=== PATIENT | male | born 1955 | race Caucasian/White ===

== ENCOUNTER 2020-05-09 07:32 | Inpatient (IN) ==
[2020-05-09 08:06] LABS: Basophils # 0.2 K/mcL (0.0-0.2); Basophils % 1.3 %; Eosinophils % 11.7 %; Hemoglobin 14.1 g/dL (12.9-16.9); Immature Granulocytes % 1.3 % (0-4); Lymphocytes # 5.4 K/mcL (0.6-4.6); Lymphocytes % 31.4 %; Mean Corpuscular HGB Conc 31.3 g/dL (31.6-35.5); Mean Corpuscular Hemoglobin 30.9 pg (28.0-33.3); Mean Corpuscular Volume 98.7 fL (83.0-100.0); Mean Platelet Volume 10.3 fL (9.4-12.4); Monocytes # 1.5 K/mcL (0.0-1.3); Monocytes % 8.8 %; Neutrophils # 7.9 K/mcL (1.6-8.9); Platelet Count 321 K/mcL (140-400); Red Blood Count 4.56 M/mcL (4.19-5.50); Red Cell Distribution Width 13.6 % (11.5-14.5); Segmented Neutrophils % 45.5 %; White Blood Count 17.3 K/mcL (4.3-11.1)
[2020-05-09 08:14] LABS: Alanine Aminotransferase 27 Units/L (7-52); Albumin 4.7 g/dL (3.5-5.7); Albumin/Globulin Ratio 1.7 (1.1-2.2); Alkaline Phosphatase 52 Units/L (34-104); Aspartate Amino Transferase 25 Units/L (13-39); BUN/Creatinine Ratio 9 (6-26); Blood Urea Nitrogen 10 mg/dL (8-23); Calcium 9.4 mg/dL (8.6-10.3); Carbon Dioxide 35 mEq/L (23-29); Chloride 94 mEq/L (98-107); Globulin 2.8 g/dL (2.4-3.5); Glucose 254 mg/dL (70-105); Magnesium 2.3 mg/dL (1.6-2.6); Osmolality,Calculated 280 (280-300); Potassium 4.9 mEq/L (3.5-5.1); Sodium 131 mEq/L (136-145); Total Protein 7.5 g/dL (6.4-8.9); eGFR For African Americans > 60 (> 60); eGFR For Non-African Americans > 60 (> 60)
[2020-05-09 08:15] LABS: Prothrombin Time 13.4 Seconds (9.4-12.1)
[2020-05-09 08:17] LABS: Troponin I < 0.03 ng/mL (< 0.04)
[2020-05-09 08:21] LABS: ABG Base Excess -1 mEq/L (-2 to 3); ABG HCO3 32 mEq/L (21-27); ABG Oxygen Saturation 98 % (95-98); ABG PCO2 90 mmHg (35-45); ABG PH 7.15 pH Units (7.32-7.45); ABG PO2 135 mmHg (85-104); ABG TCO2 34 mEq/L (20-26)
[2020-05-09] MEDS ORDERED: Nitroglycerin 1 INCH/GM PACKET TP ONE (08:21)
[2020-05-09] MEDS ORDERED: Albuterol 2.5 MG/3 ML NEBULIZER ONE ×2 (08:25→12:07)
[2020-05-09 08:29] LABS: INR 1.2
[2020-05-09] MEDS ORDERED: methylPREDNISolone 125 MG/2 ML VIAL IVP ONE (08:30)
[2020-05-09 08:31] LABS: Thyroid Stimulating Hormone 1.152 mcIU/mL (0.340-5.600)
[2020-05-09 10:39] LABS: ABG Base Excess -4 mEq/L (-2 to 3); ABG HCO3 26 mEq/L (21-27); ABG Oxygen Saturation 96 % (95-98); ABG PCO2 68 mmHg (35-45); ABG PH 7.19 pH Units (7.32-7.45); ABG PO2 107 mmHg (85-104); ABG TCO2 28 mEq/L (20-26)
[2020-05-09 10:54] LABS: ABG Base Excess 0 mEq/L (-2 to 3); ABG HCO3 30 mEq/L (21-27); ABG Oxygen Saturation 96 % (95-98); ABG PCO2 70 mmHg (35-45); ABG PH 7.24 pH Units (7.32-7.45); ABG PO2 99 mmHg (85-104); ABG TCO2 32 mEq/L (20-26)
[2020-05-09] MEDS ORDERED: Albuterol Neb 7.5 MG, Sodium Chloride for inhalation 12 ML IH ONE (12:20)
[2020-05-09] MEDS ORDERED: Naloxone 0.4 MG/ML INJ IVP PRN (13:06)
[2020-05-09] MEDS ORDERED: Ondansetron ODT 4 MG TAB.RAPDIS SL PRN (13:06)
[2020-05-09] MEDS ORDERED: Acetaminophen 325 MG TABLET PO PRN (13:06)
[2020-05-09] MEDS ORDERED: MOM Conc 10 ML UD.LIQ PO PRN (13:06)
[2020-05-09] MEDS ORDERED: Ondansetron 4 MG/2 ML VIAL IVP PRN (13:06)
[2020-05-09] MEDS ORDERED: Mag Hydrox/Al Hydrox/Simeth 30 ML UDC PO PRN (13:06)
[2020-05-09] MEDS: MethylPREDNISolone 40 MG/ML VIAL IVP SCH ×2 (14:12→18:39)
[2020-05-09] MEDS: cefTRIAXone 1,000 MG in Water for inj. (sterile) 10 ML IVP SCH (14:14)
[2020-05-09] MEDS: 0.9 % Sodium Chloride 1,000 ML IVC SCH (14:15)
[2020-05-09] MEDS: Azithromycin 500 MG in 0.9 % Sodium Chloride 250 ML IVPB SCH (14:16)
[2020-05-09] MEDS: Benzonatate 100 MG CAPSULE PO PRN (15:09)
[2020-05-09] MEDS ORDERED: *HR* LORazepam 1 MG TABLET PO PRN (15:11)
[2020-05-09] MEDS: Ipratropium/Albuterol Neb 3 ML IH SCH ×2 (16:45→20:19)
[2020-05-09 17:07] LABS: Bilirubin,Urine Negative (Negative); Blood,Urine Negative (Negative); Clarity,Urine Clear (Clear); Color,Urine Yellow (Yellow); Glucose,Urine (UA) Normal (Normal); Ketones,Urine Negative (Negative); Leukocyte Esterase,Urine Negative (Negative); Nitrite,Urine Negative (Negative); PH,Urine 5.5 pH Units (5.0-8.0); Protein,Urine 100 mg/dL (Neg-Trace); Specific Gravity,Urine >= 1.030 (1.010-1.025); Urobilinogen,Urine Normal (Normal)
[2020-05-09 18:06] LABS: Amorphous Sediment,Urine Few per hpf (None-Few); RBC,Urine 0-3 per hpf (0-3); Squamous Epithelial Cell,Urine Few per hpf (None-Few)
[2020-05-09 18:48] LABS: Adenovirus Not Detected (Not Detect)
[2020-05-09 18:49] LABS: Bordetella Pertussis Not Detected (Not Detect); Chlamydophila pneumoniae Not Detected (Not Detect); Coronavirus 229E Not Detected (Not Detect); Coronavirus HKU1 Not Detected (Not Detect); Coronavirus NL63 Not Detected (Not Detect); Coronavirus OC43 Not Detected (Not Detect); Human Metapneumovirus Not Detected (Not Detect); Human Rhinovirus/Enterovirus Not Detected (Not Detect); Influenza A Subtype 2009 H1 Not Detected (Not Detect); Influenza B Not Detected (Not Detect); Mycoplasma pneumoniae Not Detected (Not Detect); Parainfluenza Virus 1 Not Detected (Not Detect); Parainfluenza Virus 2 Not Detected (Not Detect); Parainfluenza Virus 3 Not Detected (Not Detect); Parainfluenza Virus 4 Not Detected (Not Detect); Respiratory Syncytial Virus Not Detected (Not Detect); SARS-CoV-2 Not Detected (Not Detect)
[2020-05-10] MEDS: Ipratropium/Albuterol Neb 3 ML IH SCH ×7 (00:06→23:48)
[2020-05-10] MEDS: MethylPREDNISolone 40 MG/ML VIAL IVP SCH ×5 (00:18→23:31)
[2020-05-10] MEDS: 0.9 % Sodium Chloride 1,000 ML IVC SCH ×2 (04:24→18:15)
[2020-05-10] MEDS: *HR* Enoxaparin 40 MG/0.4 ML SYRINGE SQ SCH (05:18)
[2020-05-10 05:29] LABS: ABG Base Excess 0 mEq/L (-2 to 3); ABG HCO3 26 mEq/L (21-27); ABG Oxygen Saturation 92 % (95-98); ABG PCO2 45 mmHg (35-45); ABG PH 7.37 pH Units (7.32-7.45); ABG PO2 65 mmHg (85-104); ABG TCO2 27 mEq/L (20-26)
[2020-05-10 05:55] LABS: Basophils % 0.1 %; Eosinophils % 0.1 %; Hematocrit 37.2 % (37.5-50.1); Immature Granulocytes % 0.7 % (0-4); Lymphocytes # 0.9 K/mcL (0.6-4.6); Mean Corpuscular HGB Conc 32.3 g/dL (31.6-35.5); Mean Corpuscular Volume 96.1 fL (83.0-100.0); Mean Platelet Volume 10.1 fL (9.4-12.4); Monocytes # 0.3 K/mcL (0.0-1.3); Monocytes % 2.3 %; Platelet Count 204 K/mcL (140-400); Red Blood Count 3.87 M/mcL (4.19-5.50); Red Cell Distribution Width 13.8 % (11.5-14.5); Segmented Neutrophils % 90.8 %; White Blood Count 14.5 K/mcL (4.3-11.1)
[2020-05-10 06:04] LABS: Neutrophils # 13.2 K/mcL (1.6-8.9)
[2020-05-10 06:16] LABS: Alanine Aminotransferase 22 Units/L (7-52); Albumin 3.9 g/dL (3.5-5.7); Albumin/Globulin Ratio 1.6 (1.1-2.2); Alkaline Phosphatase 36 Units/L (34-104); Aspartate Amino Transferase 19 Units/L (13-39); BUN/Creatinine Ratio 20 (6-26); Bilirubin,Total 0.9 mg/dL (0.3-1.0); Blood Urea Nitrogen 20 mg/dL (8-23); Calcium 8.9 mg/dL (8.6-10.3); Carbon Dioxide 26 mEq/L (23-29); Chloride 100 mEq/L (98-107); Globulin 2.4 g/dL (2.4-3.5); Glucose 141 mg/dL (70-105); Magnesium 2.1 mg/dL (1.6-2.6); Osmolality,Calculated 281 (280-300); Phosphorous 3.1 mg/dL (2.7-4.5); Potassium 4.6 mEq/L (3.5-5.1); Sodium 133 mEq/L (136-145); Total Protein 6.3 g/dL (6.4-8.9); eGFR For African Americans > 60 (> 60); eGFR For Non-African Americans > 60 (> 60)
[2020-05-10] MEDS: lisinopriL 20 MG TABLET PO SCH (08:47)
[2020-05-10] MEDS: cefTRIAXone 1,000 MG in Water for inj. (sterile) 10 ML IVP SCH (08:47)
[2020-05-10] MEDS: Azithromycin 500 MG in 0.9 % Sodium Chloride 250 ML IVPB SCH (18:16)
[2020-05-11] MEDS: Benzonatate 100 MG CAPSULE PO PRN (01:46)
[2020-05-11] MEDS: Ipratropium/Albuterol Neb 3 ML IH SCH ×5 (04:00→20:04)
[2020-05-11 05:24] LABS: Hematocrit 34.4 % (37.5-50.1); Mean Corpuscular Hemoglobin 30.9 pg (28.0-33.3); Mean Corpuscular Volume 96.6 fL (83.0-100.0); Mean Platelet Volume 10.3 fL (9.4-12.4); Platelet Count 209 K/mcL (140-400); Red Blood Count 3.56 M/mcL (4.19-5.50); Red Cell Distribution Width 13.4 % (11.5-14.5); White Blood Count 15.9 K/mcL (4.3-11.1)
[2020-05-11] MEDS: *HR* Enoxaparin 40 MG/0.4 ML SYRINGE SQ SCH (05:29)
[2020-05-11] MEDS: MethylPREDNISolone 40 MG/ML VIAL IVP SCH ×3 (05:30→17:18)
[2020-05-11 05:38] LABS: BUN/Creatinine Ratio 19 (6-26); Blood Urea Nitrogen 17 mg/dL (8-23); Calcium 8.8 mg/dL (8.6-10.3); Carbon Dioxide 28 mEq/L (23-29); Chloride 106 mEq/L (98-107); Glucose 142 mg/dL (70-105); Osmolality,Calculated 290 (280-300); Potassium 4.3 mEq/L (3.5-5.1); Sodium 138 mEq/L (136-145); eGFR For African Americans > 60 (> 60); eGFR For Non-African Americans > 60 (> 60)
[2020-05-11 09:03] LABS: ABG Base Excess 2 mEq/L (-2 to 3); ABG HCO3 26 mEq/L (21-27); ABG Oxygen Saturation 91 % (95-98); ABG PCO2 40 mmHg (35-45); ABG PH 7.43 pH Units (7.32-7.45); ABG PO2 60 mmHg (85-104); ABG TCO2 27 mEq/L (20-26)
[2020-05-11] MEDS: lisinopriL 20 MG TABLET PO SCH (09:52)
[2020-05-11] MEDS: cefTRIAXone 1,000 MG in Water for inj. (sterile) 10 ML IVP SCH (09:52)
[2020-05-11] MEDS ORDERED: Isovue-370 500 ML BOTTLE IVP ONE (10:35)
[2020-05-11] MEDS: Azithromycin 500 MG in 0.9 % Sodium Chloride 250 ML IVPB SCH (14:39)
[2020-05-12] MEDS: Ipratropium/Albuterol Neb 3 ML IH SCH ×5 (00:01→15:49)
[2020-05-12] MEDS: MethylPREDNISolone 40 MG/ML VIAL IVP SCH ×4 (00:50→17:46)
[2020-05-12 06:39] LABS: Hemoglobin 11.2 g/dL (12.9-16.9); Mean Corpuscular Hemoglobin 30.6 pg (28.0-33.3); Mean Corpuscular Volume 95.6 fL (83.0-100.0); Mean Platelet Volume 10.5 fL (9.4-12.4); Platelet Count 208 K/mcL (140-400); Red Blood Count 3.66 M/mcL (4.19-5.50); Red Cell Distribution Width 13.4 % (11.5-14.5); White Blood Count 14.6 K/mcL (4.3-11.1)
[2020-05-12] MEDS: *HR* Enoxaparin 40 MG/0.4 ML SYRINGE SQ SCH (06:48)
[2020-05-12 06:54] LABS: Alanine Aminotransferase 23 Units/L (7-52); Albumin 3.5 g/dL (3.5-5.7); Albumin/Globulin Ratio 1.5 (1.1-2.2); Alkaline Phosphatase 31 Units/L (34-104); Aspartate Amino Transferase 16 Units/L (13-39); BUN/Creatinine Ratio 22 (6-26); Bilirubin,Total 0.5 mg/dL (0.3-1.0); Blood Urea Nitrogen 19 mg/dL (8-23); Calcium 8.7 mg/dL (8.6-10.3); Carbon Dioxide 24 mEq/L (23-29); Chloride 105 mEq/L (98-107); Globulin 2.3 g/dL (2.4-3.5); Glucose 136 mg/dL (70-105); Magnesium 2.2 mg/dL (1.6-2.6); Osmolality,Calculated 286 (280-300); Sodium 136 mEq/L (136-145); Total Protein 5.8 g/dL (6.4-8.9); eGFR For African Americans > 60 (> 60); eGFR For Non-African Americans > 60 (> 60)
[2020-05-12 07:16] LABS: ABG Base Excess 1 mEq/L (-2 to 3); ABG HCO3 26 mEq/L (21-27); ABG Oxygen Saturation 95 % (95-98); ABG PCO2 41 mmHg (35-45); ABG PH 7.41 pH Units (7.32-7.45); ABG PO2 74 mmHg (85-104); ABG TCO2 27 mEq/L (20-26)
[2020-05-12] MEDS: lisinopriL 20 MG TABLET PO SCH (09:31)
[2020-05-12] MEDS: cefTRIAXone 1,000 MG in Water for inj. (sterile) 10 ML IVP SCH (09:31)
[2020-05-12 16:45] VITALS: BP 154/75
[2020-05-12] MEDS: Azithromycin 500 MG in 0.9 % Sodium Chloride 250 ML IVPB SCH (17:46)
== END 2020-05-12 17:15 | disposition short-term general hospital (02) | DRG 190 ==
LOC: EMEROOGRE 07:32 → INPGRE 11:27
PROVIDERS: ADMIT Family Medicine; ATTEND Family Medicine

== ENCOUNTER 2020-12-10 20:52 | Inpatient (IN) ==
[2020-12-10] MEDS ORDERED: Ipratropium/Albuterol Neb 3 ML IH ONE ×2 (21:11→21:29)
[2020-12-10 22:08] LABS: Basophils # 0.2 K/mcL (0.0-0.2); Basophils % 1.6 %; Eosinophils # 1.5 K/mcL (0.0-0.6); Eosinophils % 15.4 %; Hematocrit 41.5 % (37.5-50.1); Hemoglobin 13.3 g/dL (12.9-16.9); Immature Granulocytes % 0.8 % (0-4); Lymphocytes % 20.4 %; Mean Corpuscular Hemoglobin 29.8 pg (28.0-33.3); Mean Platelet Volume 10.2 fL (9.4-12.4); Monocytes # 0.8 K/mcL (0.0-1.3); Monocytes % 8.6 %; Neutrophils # 5.2 K/mcL (1.6-8.9); Platelet Count 244 K/mcL (140-400); Red Blood Count 4.46 M/mcL (4.19-5.50); Red Cell Distribution Width 13.4 % (11.5-14.5); Segmented Neutrophils % 53.2 %; White Blood Count 9.8 K/mcL (4.3-11.1)
[2020-12-10 22:12] LABS: INR 1.1; Prothrombin Time 12.4 Seconds (9.4-12.1)
[2020-12-10 22:20] LABS: Activated Partial Thrombo Time 31.9 Seconds (26.0-36.0)
[2020-12-10 22:23] LABS: Troponin I < 0.03 ng/mL (< 0.04)
[2020-12-10 22:24] LABS: Alanine Aminotransferase 32 Units/L (7-52); Albumin 4.3 g/dL (3.5-5.7); Albumin/Globulin Ratio 1.5 (1.1-2.2); Alkaline Phosphatase 61 Units/L (34-104); Aspartate Amino Transferase 25 Units/L (13-39); BUN/Creatinine Ratio 7 (6-26); Bilirubin,Total 0.6 mg/dL (0.3-1.0); Blood Urea Nitrogen 7 mg/dL (8-23); Calcium 9.6 mg/dL (8.6-10.3); Carbon Dioxide 30 mEq/L (23-29); Chloride 98 mEq/L (98-107); Globulin 2.8 g/dL (2.4-3.5); Glucose 116 mg/dL (70-105); Osmolality,Calculated 279 (280-300); Phosphorous 3.6 mg/dL (2.7-4.5); Potassium 4.1 mEq/L (3.5-5.1); Sodium 135 mEq/L (136-145); Total Protein 7.1 g/dL (6.4-8.9); eGFR For African Americans > 60 (> 60); eGFR For Non-African Americans > 60 (> 60)
[2020-12-10] MEDS ORDERED: Isovue-370 500 ML BOTTLE IVP ONE (22:59)
[2020-12-10] MEDS ORDERED: Famotidine 20 MG/2 ML VIAL IVP ONE (23:03)
[2020-12-10] MEDS ORDERED: cefTRIAXone 1,000 MG in 0.9 % Sodium Chloride Mini Bag 100 ML IVPB ONE (23:59)
[2020-12-11] MEDS ORDERED: Ipratropium/Albuterol Neb 3 ML IH ONE (00:32)
[2020-12-11] MEDS ORDERED: *HR* LORazepam 2 MG/ML VIAL IVP ONE ×2 (00:42→22:14)
[2020-12-11] MEDS ORDERED: Azithromycin 500 MG in 0.9 % Sodium Chloride 250 ML IVPB ONE ×2 (01:00→01:35)
[2020-12-11] MEDS ORDERED: Naloxone 0.4 MG/ML INJ IVP PRN (01:35)
[2020-12-11] MEDS: Ipratropium/Albuterol Neb 3 ML IH SCH ×7 (04:31→23:55)
[2020-12-11 07:43] LABS: Basophils # 0.1 K/mcL (0.0-0.2); Basophils % 0.9 %; Eosinophils # 0.1 K/mcL (0.0-0.6); Eosinophils % 1.2 %; Hematocrit 43.5 % (37.5-50.1); Hemoglobin 13.6 g/dL (12.9-16.9); Immature Granulocytes % 1.2 % (0-4); Lymphocytes # 0.6 K/mcL (0.6-4.6); Lymphocytes % 9.5 %; Mean Corpuscular HGB Conc 31.3 g/dL (31.6-35.5); Mean Corpuscular Hemoglobin 29.6 pg (28.0-33.3); Mean Corpuscular Volume 94.8 fL (83.0-100.0); Mean Platelet Volume 9.9 fL (9.4-12.4); Monocytes # 0.1 K/mcL (0.0-1.3); Monocytes % 1.1 %; Neutrophils # 5.6 K/mcL (1.6-8.9); Platelet Count 261 K/mcL (140-400); Red Blood Count 4.59 M/mcL (4.19-5.50); Red Cell Distribution Width 13.3 % (11.5-14.5); Segmented Neutrophils % 86.1 %; White Blood Count 6.5 K/mcL (4.3-11.1)
[2020-12-11] MEDS: Tiotropium 10 INH DOSE IH SCH (07:53)
[2020-12-11] MEDS: Budesonide/Formoterol 160/4.5 1 PUFF INH IH SCH ×2 (07:53→21:02)
[2020-12-11 08:02] LABS: Alanine Aminotransferase 34 Units/L (7-52); Albumin 4.4 g/dL (3.5-5.7); Albumin/Globulin Ratio 1.5 (1.1-2.2); Alkaline Phosphatase 60 Units/L (34-104); Aspartate Amino Transferase 27 Units/L (13-39); BUN/Creatinine Ratio 7 (6-26); Bilirubin,Total 0.5 mg/dL (0.3-1.0); Blood Urea Nitrogen 6 mg/dL (8-23); Calcium 9.5 mg/dL (8.6-10.3); Carbon Dioxide 27 mEq/L (23-29); Chloride 101 mEq/L (98-107); Globulin 2.9 g/dL (2.4-3.5); Glucose 163 mg/dL (70-105); Osmolality,Calculated 283 (280-300); Potassium 4.7 mEq/L (3.5-5.1); Sodium 136 mEq/L (136-145); Total Protein 7.3 g/dL (6.4-8.9); eGFR For African Americans > 60 (> 60); eGFR For Non-African Americans > 60 (> 60)
[2020-12-11] MEDS ORDERED: predniSONE 20 MG TABLET PO SCH (09:00)
[2020-12-11] MEDS: Aspirin Enteric Coated 81 MG Tablet PO SCH (09:05)
[2020-12-11] MEDS: lisinopriL 20 MG TABLET PO SCH (09:05)
[2020-12-11] MEDS: methylPREDNISolone 125 MG/2 ML VIAL IVP SCH ×3 (12:11→23:35)
[2020-12-11] MEDS: 0.9 % Sodium Chloride 1,000 ML IVC SCH ×2 (12:11→22:37)
[2020-12-11 12:29] LABS: ABG Base Excess 1 mEq/L (-2 to 3); ABG HCO3 28 mEq/L (21-27); ABG Oxygen Saturation 87 % (95-98); ABG PCO2 50 mmHg (35-45); ABG PH 7.35 pH Units (7.32-7.45); ABG PO2 56 mmHg (85-104); ABG TCO2 29 mEq/L (20-26)
[2020-12-12] MEDS: Ipratropium/Albuterol Neb 3 ML IH SCH ×6 (04:05→21:48)
[2020-12-12 06:15] LABS: Hematocrit 37.5 % (37.5-50.1); Hemoglobin 11.7 g/dL (12.9-16.9); Mean Corpuscular HGB Conc 31.2 g/dL (31.6-35.5); Mean Corpuscular Hemoglobin 29.7 pg (28.0-33.3); Mean Corpuscular Volume 95.2 fL (83.0-100.0); Mean Platelet Volume 10.3 fL (9.4-12.4); Platelet Count 235 K/mcL (140-400); Red Blood Count 3.94 M/mcL (4.19-5.50); White Blood Count 14.2 K/mcL (4.3-11.1)
[2020-12-12] MEDS: methylPREDNISolone 125 MG/2 ML VIAL IVP SCH ×4 (06:23→23:16)
[2020-12-12] MEDS: *HR* Enoxaparin 40 MG/0.4 ML SYRINGE SQ SCH (06:23)
[2020-12-12 06:34] LABS: Alanine Aminotransferase 25 Units/L (7-52); Albumin 3.7 g/dL (3.5-5.7); Albumin/Globulin Ratio 1.6 (1.1-2.2); Alkaline Phosphatase 47 Units/L (34-104); Aspartate Amino Transferase 17 Units/L (13-39); BUN/Creatinine Ratio 14 (6-26); Bilirubin,Total 0.3 mg/dL (0.3-1.0); Blood Urea Nitrogen 11 mg/dL (8-23); Carbon Dioxide 27 mEq/L (23-29); Chloride 104 mEq/L (98-107); Globulin 2.3 g/dL (2.4-3.5); Glucose 152 mg/dL (70-105); Osmolality,Calculated 282 (280-300); Potassium 4.1 mEq/L (3.5-5.1); Sodium 135 mEq/L (136-145); eGFR For African Americans > 60 (> 60); eGFR For Non-African Americans > 60 (> 60)
[2020-12-12] MEDS: Aspirin Enteric Coated 81 MG Tablet PO SCH (08:20)
[2020-12-12] MEDS: lisinopriL 20 MG TABLET PO SCH (08:20)
[2020-12-12] MEDS: cefTRIAXone 1,000 MG in Water for inj. (sterile) 10 ML IVP SCH (08:20)
[2020-12-12] MEDS: Azithromycin 250 MG TABLET PO SCH (08:20)
[2020-12-12] MEDS: Tiotropium 10 INH DOSE IH SCH (08:47)
[2020-12-12] MEDS: Budesonide/Formoterol 160/4.5 1 PUFF INH IH SCH ×2 (08:48→21:48)
[2020-12-12] MEDS: 0.9 % Sodium Chloride 1,000 ML IVC SCH ×2 (10:10→19:55)
[2020-12-12] MEDS ORDERED: Mag Hydrox/Al Hydrox/Simeth 30 ML UDC PO PRN (11:03)
[2020-12-12] MEDS ORDERED: Levalbuterol Neb 1.25 MG/3 ML ONE (14:13)
[2020-12-12] MEDS: Levalbuterol Neb 1.25 MG/3 ML IH PRN (19:59)
[2020-12-13] MEDS: Levalbuterol Neb 1.25 MG/3 ML IH PRN ×3 (01:33→14:17)
[2020-12-13] MEDS ORDERED: Ibuprofen 600 MG TABLET PO PRN (04:23)
[2020-12-13] MEDS: Ipratropium/Albuterol Neb 3 ML IH SCH ×4 (04:24→20:21)
[2020-12-13] MEDS: methylPREDNISolone 125 MG/2 ML VIAL IVP SCH ×3 (04:36→19:29)
[2020-12-13] MEDS: *HR* Enoxaparin 40 MG/0.4 ML SYRINGE SQ SCH (04:38)
[2020-12-13] MEDS: cefTRIAXone 1,000 MG in Water for inj. (sterile) 10 ML IVP SCH (07:40)
[2020-12-13] MEDS: lisinopriL 20 MG TABLET PO SCH (07:40)
[2020-12-13] MEDS: Aspirin Enteric Coated 81 MG Tablet PO SCH (07:40)
[2020-12-13] MEDS: Azithromycin 250 MG TABLET PO SCH (07:40)
[2020-12-13] MEDS: 0.9 % Sodium Chloride 1,000 ML IVC SCH ×2 (07:41→17:10)
[2020-12-13] MEDS: Tiotropium 10 INH DOSE IH SCH (07:57)
[2020-12-13] MEDS: Budesonide/Formoterol 160/4.5 1 PUFF INH IH SCH ×2 (07:58→20:21)
[2020-12-14] MEDS: methylPREDNISolone 125 MG/2 ML VIAL IVP SCH ×3 (00:44→16:55)
[2020-12-14] MEDS: Ipratropium/Albuterol Neb 3 ML IH SCH ×4 (03:29→19:37)
[2020-12-14] MEDS: 0.9 % Sodium Chloride 1,000 ML IVC SCH ×2 (03:40→14:49)
[2020-12-14] MEDS: *HR* Enoxaparin 40 MG/0.4 ML SYRINGE SQ SCH (05:57)
[2020-12-14] MEDS: Budesonide/Formoterol 160/4.5 1 PUFF INH IH SCH ×2 (07:17→19:37)
[2020-12-14] MEDS: Levalbuterol Neb 1.25 MG/3 ML IH PRN (07:17)
[2020-12-14] MEDS: Tiotropium 10 INH DOSE IH SCH (07:18)
[2020-12-14] MEDS: cefTRIAXone 1,000 MG in Water for inj. (sterile) 10 ML IVP SCH (08:57)
[2020-12-14] MEDS: lisinopriL 20 MG TABLET PO SCH (08:57)
[2020-12-14] MEDS: Azithromycin 250 MG TABLET PO SCH (08:57)
[2020-12-14] MEDS: Aspirin Enteric Coated 81 MG Tablet PO SCH (08:57)
[2020-12-14 09:49] LABS: Hematocrit 37.2 % (37.5-50.1); Hemoglobin 11.8 g/dL (12.9-16.9); Mean Corpuscular HGB Conc 31.7 g/dL (31.6-35.5); Mean Corpuscular Hemoglobin 29.9 pg (28.0-33.3); Mean Corpuscular Volume 94.4 fL (83.0-100.0); Mean Platelet Volume 10.2 fL (9.4-12.4); Platelet Count 224 K/mcL (140-400); Red Blood Count 3.94 M/mcL (4.19-5.50); Red Cell Distribution Width 12.7 % (11.5-14.5); White Blood Count 12.1 K/mcL (4.3-11.1)
[2020-12-14] MEDS ORDERED: Saline Nasal Spray 44 ML BOTTLE NS PRN (20:30)
[2020-12-15] MEDS: 0.9 % Sodium Chloride 1,000 ML IVC SCH ×3 (00:52→17:50)
[2020-12-15] MEDS: Ipratropium/Albuterol Neb 3 ML IH SCH ×4 (04:08→21:28)
[2020-12-15] MEDS: *HR* Enoxaparin 40 MG/0.4 ML SYRINGE SQ SCH (04:30)
[2020-12-15] MEDS: methylPREDNISolone 125 MG/2 ML VIAL IVP SCH ×2 (04:30→17:43)
[2020-12-15 05:26] LABS: BUN/Creatinine Ratio 20 (6-26); Blood Urea Nitrogen 17 mg/dL (8-23); Calcium 8.5 mg/dL (8.6-10.3); Carbon Dioxide 28 mEq/L (23-29); Chloride 104 mEq/L (98-107); Glucose 109 mg/dL (70-105); Osmolality,Calculated 288 (280-300); Potassium 3.6 mEq/L (3.5-5.1); Sodium 138 mEq/L (136-145); eGFR For African Americans > 60 (> 60); eGFR For Non-African Americans > 60 (> 60)
[2020-12-15] MEDS: lisinopriL 20 MG TABLET PO SCH (08:26)
[2020-12-15] MEDS: Azithromycin 250 MG TABLET PO SCH (08:26)
[2020-12-15] MEDS: Aspirin Enteric Coated 81 MG Tablet PO SCH (08:26)
[2020-12-15] MEDS: cefTRIAXone 1,000 MG in Water for inj. (sterile) 10 ML IVP SCH (08:27)
[2020-12-15] MEDS: Budesonide/Formoterol 160/4.5 1 PUFF INH IH SCH ×2 (08:58→21:29)
[2020-12-15] MEDS: Tiotropium 10 INH DOSE IH SCH (08:58)
[2020-12-16] MEDS: Ipratropium/Albuterol Neb 3 ML IH SCH ×2 (03:16→09:49)
[2020-12-16] MEDS: methylPREDNISolone 125 MG/2 ML VIAL IVP SCH (06:07)
[2020-12-16] MEDS: *HR* Enoxaparin 40 MG/0.4 ML SYRINGE SQ SCH (06:08)
[2020-12-16 07:38] VITALS: BP 169/89
[2020-12-16] MEDS: lisinopriL 20 MG TABLET PO SCH (08:31)
[2020-12-16] MEDS: cefTRIAXone 1,000 MG in Water for inj. (sterile) 10 ML IVP SCH (08:31)
[2020-12-16] MEDS: Aspirin Enteric Coated 81 MG Tablet PO SCH (08:31)
[2020-12-16] MEDS: Azithromycin 250 MG TABLET PO SCH (08:31)
[2020-12-16] MEDS: Budesonide/Formoterol 160/4.5 1 PUFF INH IH SCH (08:57)
[2020-12-16] MEDS: Tiotropium 10 INH DOSE IH SCH (08:58)
== END 2020-12-16 11:00 | disposition home or self-care (01) | DRG 190 ==
LOC: EMEROOGRE 20:52 → INPGRE 20:52 → SUATTDRO 12-13 14:21
PROVIDERS: ADMIT Family Medicine; ATTEND Family Medicine

== ENCOUNTER 2021-06-22 00:12 | Inpatient (IN) ==
[2021-06-22] MEDS ORDERED: Ipratropium/Albuterol Neb 3 ML IH ONE (00:24)
[2021-06-22] MEDS ORDERED: methylPREDNISolone 125 MG/2 ML VIAL IVP ONE (00:24)
[2021-06-22] MEDS ORDERED: Ipratropium/Albuterol Neb 3 ML ONE ×2 (00:24→02:30)
[2021-06-22] MEDS ORDERED: Levalbuterol Neb 1.25 MG/3 ML IH ONE (00:25)
[2021-06-22] MEDS ORDERED: Levalbuterol Neb 1.25 MG/3 ML ONE (00:25)
[2021-06-22 00:46] LABS: Basophils # 0.2 K/mcL (0.0-0.2); Basophils % 1.6 %; Eosinophils # 1.6 K/mcL (0.0-0.6); Eosinophils % 17.4 %; Hematocrit 40.4 % (37.5-50.1); Hemoglobin 12.8 g/dL (12.9-16.9); Immature Granulocytes % 0.4 % (0-4); Lymphocytes # 1.8 K/mcL (0.6-4.6); Lymphocytes % 18.5 %; Mean Corpuscular HGB Conc 31.7 g/dL (31.6-35.5); Mean Corpuscular Hemoglobin 29.5 pg (28.0-33.3); Mean Corpuscular Volume 93.1 fL (83.0-100.0); Monocytes # 0.6 K/mcL (0.0-1.3); Monocytes % 6.3 %; Neutrophils # 5.3 K/mcL (1.6-8.9); Platelet Count 229 K/mcL (140-400); Red Blood Count 4.34 M/mcL (4.19-5.50); Red Cell Distribution Width 13.5 % (11.5-14.5); Segmented Neutrophils % 55.8 %; White Blood Count 9.5 K/mcL (4.3-11.1)
[2021-06-22 01:02] LABS: Alanine Aminotransferase 25 Units/L (7-52); Albumin 4.1 g/dL (3.5-5.7); Albumin/Globulin Ratio 1.7 (1.1-2.2); Aspartate Amino Transferase 19 Units/L (13-39); BUN/Creatinine Ratio 11 (6-26); Bilirubin,Direct 0.2 mg/dL (0.0-0.2); Bilirubin,Indirect 0.7 mg/dL (0.0-1.0); Bilirubin,Total 0.9 mg/dL (0.3-1.0); Blood Urea Nitrogen 11 mg/dL (8-23); Calcium 8.7 mg/dL (8.6-10.3); Carbon Dioxide 31 mEq/L (23-29); Chloride 100 mEq/L (98-107); Globulin 2.4 g/dL (2.4-3.5); Glucose 104 mg/dL (70-105); Osmolality,Calculated 284 (280-300); Potassium 4.3 mEq/L (3.5-5.1); Sodium 137 mEq/L (136-145); Total Protein 6.5 g/dL (6.4-8.9); eGFR For African Americans > 60 (> 60); eGFR For Non-African Americans > 60 (> 60)
[2021-06-22 01:03] LABS: VBG HCO3 30 mEq/L (21-27); VBG PCO2 53 mmHg (41-51); VBG PH 7.36 pH Units (7.32-7.42); VBG PO2 53 mmHg (25-50)
[2021-06-22 01:04] LABS: Troponin I < 0.03 ng/mL (< 0.04)
[2021-06-22 01:11] LABS: Alkaline Phosphatase 53 Units/L (34-104)
[2021-06-22] MEDS ORDERED: Naloxone 0.4 MG/ML INJ IVP PRN (02:28)
[2021-06-22] MEDS ORDERED: MethylPREDNISolone 40 MG/ML VIAL IVP SCH (02:45)
[2021-06-22] MEDS: Ipratropium/Albuterol Neb 3 ML IH SCH ×6 (03:32→23:54)
[2021-06-22 05:01] LABS: Hemoglobin 13.6 g/dL (12.9-16.9); Mean Corpuscular HGB Conc 32.4 g/dL (31.6-35.5); Mean Corpuscular Hemoglobin 29.8 pg (28.0-33.3); Mean Corpuscular Volume 91.9 fL (83.0-100.0); Mean Platelet Volume 9.9 fL (9.4-12.4); Platelet Count 228 K/mcL (140-400); Red Blood Count 4.57 M/mcL (4.19-5.50); Red Cell Distribution Width 13.7 % (11.5-14.5); White Blood Count 6.7 K/mcL (4.3-11.1)
[2021-06-22 05:04] LABS: INR 1.2
[2021-06-22 05:07] LABS: Activated Partial Thrombo Time 31.7 Seconds (26.0-36.0)
[2021-06-22 05:15] LABS: BUN/Creatinine Ratio 12 (6-26); Blood Urea Nitrogen 11 mg/dL (8-23); Calcium 9.7 mg/dL (8.6-10.3); Carbon Dioxide 30 mEq/L (23-29); Chloride 99 mEq/L (98-107); Glucose 139 mg/dL (70-105); Osmolality,Calculated 284 (280-300); Phosphorous 3.1 mg/dL (2.7-4.5); Potassium 4.2 mEq/L (3.5-5.1); Sodium 136 mEq/L (136-145); eGFR For African Americans > 60 (> 60); eGFR For Non-African Americans > 60 (> 60)
[2021-06-22] MEDS: Budesonide/Formoterol 160/4.5 1 PUFF INH IH SCH ×2 (07:37→19:48)
[2021-06-22] MEDS: Lactobacillus 1 EACH CAP.SPRINK PO SCH ×2 (08:41→20:54)
[2021-06-22] MEDS: Azithromycin 250 MG TABLET PO SCH (08:41)
[2021-06-22] MEDS: Tiotropium 10 INH DOSE IH SCH (11:38)
[2021-06-22] MEDS: Aspirin Enteric Coated 81 MG Tablet PO SCH (11:57)
[2021-06-22] MEDS: lisinopriL 20 MG TABLET PO SCH (11:57)
[2021-06-22] MEDS: MethylPREDNISolone 40 MG/ML VIAL IVP SCH (16:22)
[2021-06-22 19:27] LABS: Adenovirus Not Detected (Not Detect); Bordetella Pertussis Not Detected (Not Detect); Chlamydophila pneumoniae Not Detected (Not Detect); Coronavirus 229E Not Detected (Not Detect); Coronavirus HKU1 Not Detected (Not Detect); Coronavirus NL63 Not Detected (Not Detect); Coronavirus OC43 Not Detected (Not Detect); Human Metapneumovirus Not Detected (Not Detect); Human Rhinovirus/Enterovirus Not Detected (Not Detect); Influenza A Subtype 2009 H1 Not Detected (Not Detect); Influenza B Not Detected (Not Detect); Mycoplasma pneumoniae Not Detected (Not Detect); Parainfluenza Virus 1 Not Detected (Not Detect); Parainfluenza Virus 2 Not Detected (Not Detect); Parainfluenza Virus 3 Not Detected (Not Detect); Parainfluenza Virus 4 Not Detected (Not Detect); Respiratory Syncytial Virus Not Detected (Not Detect); SARS-CoV-2 Not Detected (Not Detect)
[2021-06-23] MEDS: MethylPREDNISolone 40 MG/ML VIAL IVP SCH ×4 (00:45→23:10)
[2021-06-23] MEDS: Ipratropium/Albuterol Neb 3 ML IH SCH ×6 (03:58→23:58)
[2021-06-23] MEDS: *HR* Enoxaparin 40 MG/0.4 ML SYRINGE SQ SCH (05:21)
[2021-06-23] MEDS: Tiotropium 10 INH DOSE IH SCH (06:26)
[2021-06-23] MEDS: Budesonide/Formoterol 160/4.5 1 PUFF INH IH SCH ×2 (06:28→21:02)
[2021-06-23] MEDS: Lactobacillus 1 EACH CAP.SPRINK PO SCH ×2 (08:48→20:56)
[2021-06-23] MEDS: Aspirin Enteric Coated 81 MG Tablet PO SCH (08:48)
[2021-06-23] MEDS: Azithromycin 250 MG TABLET PO SCH (08:49)
[2021-06-23] MEDS: lisinopriL 20 MG TABLET PO SCH (08:49)
[2021-06-23 09:30] LABS: ABG Base Excess 1 mEq/L (-2 to 3); ABG HCO3 26 mEq/L (21-27); ABG Oxygen Saturation 91 % (95-98); ABG PCO2 42 mmHg (35-45); ABG PH 7.41 pH Units (7.32-7.45); ABG PO2 61 mmHg (85-104); ABG TCO2 28 mEq/L (20-26)
[2021-06-23] MEDS ORDERED: Perflutren Lipid Microsphere 1.3 ML in 0.9 % Sodium Chloride 8.7 ML IVP PRN (10:34)
[2021-06-24] MEDS: Ipratropium/Albuterol Neb 3 ML IH SCH ×5 (04:13→20:15)
[2021-06-24] MEDS: *HR* Enoxaparin 40 MG/0.4 ML SYRINGE SQ SCH (05:39)
[2021-06-24 07:23] LABS: Basophils % 0.1 %; Hematocrit 39.7 % (37.5-50.1); Hemoglobin 12.4 g/dL (12.9-16.9); Immature Granulocytes % 0.6 % (0-4); Lymphocytes # 0.7 K/mcL (0.6-4.6); Lymphocytes % 4.7 %; Mean Corpuscular HGB Conc 31.2 g/dL (31.6-35.5); Mean Corpuscular Hemoglobin 29.8 pg (28.0-33.3); Mean Corpuscular Volume 95.4 fL (83.0-100.0); Mean Platelet Volume 10.6 fL (9.4-12.4); Monocytes # 0.7 K/mcL (0.0-1.3); Monocytes % 4.7 %; Platelet Count 248 K/mcL (140-400); Red Blood Count 4.16 M/mcL (4.19-5.50); Red Cell Distribution Width 13.4 % (11.5-14.5); Segmented Neutrophils % 89.9 %; White Blood Count 15.4 K/mcL (4.3-11.1)
[2021-06-24 07:29] LABS: Neutrophils # 13.8 K/mcL (1.6-8.9)
[2021-06-24 07:37] LABS: BUN/Creatinine Ratio 23 (6-26); Blood Urea Nitrogen 20 mg/dL (8-23); Calcium 9.3 mg/dL (8.6-10.3); Carbon Dioxide 30 mEq/L (23-29); Chloride 102 mEq/L (98-107); Glucose 141 mg/dL (70-105); Osmolality,Calculated 289 (280-300); Potassium 4.2 mEq/L (3.5-5.1); Sodium 137 mEq/L (136-145); eGFR For African Americans > 60 (> 60); eGFR For Non-African Americans > 60 (> 60)
[2021-06-24] MEDS: Azithromycin 250 MG TABLET PO SCH (08:06)
[2021-06-24] MEDS: MethylPREDNISolone 40 MG/ML VIAL IVP SCH ×2 (08:07→17:53)
[2021-06-24] MEDS: lisinopriL 20 MG TABLET PO SCH (08:07)
[2021-06-24] MEDS: Aspirin Enteric Coated 81 MG Tablet PO SCH (08:07)
[2021-06-24] MEDS: Lactobacillus 1 EACH CAP.SPRINK PO SCH ×2 (08:07→22:45)
[2021-06-24] MEDS: Tiotropium 10 INH DOSE IH SCH (08:26)
[2021-06-24] MEDS: Budesonide/Formoterol 160/4.5 1 PUFF INH IH SCH ×2 (08:27→20:16)
[2021-06-24] MEDS ORDERED: Benzonatate 100 MG CAPSULE PO PRN (12:56)
[2021-06-24] MEDS: Sennosides/Docusate Sodium TABLET PO SCH (14:23)
[2021-06-25] MEDS: Ipratropium/Albuterol Neb 3 ML IH SCH ×6 (00:07→20:04)
[2021-06-25] MEDS: MethylPREDNISolone 40 MG/ML VIAL IVP SCH ×2 (05:39→17:12)
[2021-06-25] MEDS: *HR* Enoxaparin 40 MG/0.4 ML SYRINGE SQ SCH (05:40)
[2021-06-25] MEDS: Tiotropium 10 INH DOSE IH SCH (07:47)
[2021-06-25] MEDS: Budesonide/Formoterol 160/4.5 1 PUFF INH IH SCH ×2 (07:48→20:04)
[2021-06-25] MEDS: Aspirin Enteric Coated 81 MG Tablet PO SCH (08:18)
[2021-06-25] MEDS: lisinopriL 20 MG TABLET PO SCH (08:18)
[2021-06-25] MEDS: Sennosides/Docusate Sodium TABLET PO SCH (08:18)
[2021-06-25] MEDS: Azithromycin 250 MG TABLET PO SCH (08:18)
[2021-06-25] MEDS: Lactobacillus 1 EACH CAP.SPRINK PO SCH ×2 (08:18→20:37)
[2021-06-26] MEDS: Ipratropium/Albuterol Neb 3 ML IH SCH ×4 (00:36→11:43)
[2021-06-26] MEDS: *HR* Enoxaparin 40 MG/0.4 ML SYRINGE SQ SCH (05:36)
[2021-06-26] MEDS: MethylPREDNISolone 40 MG/ML VIAL IVP SCH (05:36)
[2021-06-26] MEDS: Tiotropium 10 INH DOSE IH SCH (08:00)
[2021-06-26] MEDS: Budesonide/Formoterol 160/4.5 1 PUFF INH IH SCH (08:00)
[2021-06-26 08:13] VITALS: O2SAT 90
[2021-06-26] MEDS: lisinopriL 20 MG TABLET PO SCH (08:18)
[2021-06-26] MEDS: Azithromycin 250 MG TABLET PO SCH (08:19)
[2021-06-26] MEDS: Aspirin Enteric Coated 81 MG Tablet PO SCH (08:19)
[2021-06-26] MEDS: Sennosides/Docusate Sodium TABLET PO SCH (08:19)
[2021-06-26] MEDS: Lactobacillus 1 EACH CAP.SPRINK PO SCH (08:19)
[2021-06-26 11:47] VITALS: RESP 19
[2021-06-26 12:16] VITALS: BP 129/72; PULSE 71; TEMP 97.9
[2021-06-26] MEDS ORDERED: Furosemide 20 MG TABLET PO SCH (13:58)
== END 2021-06-26 16:00 | disposition home or self-care (01) ==
LOC: EMEROOGRE 00:12 → INPGRE 00:12
PROVIDERS: ADMIT Family Medicine; ATTEND Family Medicine